=== PATIENT | female | born 2000 | race Caucasian/White ===

== ENCOUNTER 2023-09-25 15:01 | Emergency (ER) | payer SELFPAY ==
[2023-09-25 15:35] VITALS: BP 148/78; PULSE 79; RESP 22; TEMP 36.7; O2SAT 100; BMI 43.2
--- NOTE | 2023-09-25 16:10 | ED_ITS ---
Discharge Plan Disposition Patient Disposition: Home, Self-Care Condition: Good Prescriptions Prescriptions: New ondansetron 4 mg tablet,disintegrating 4 mg PO Q8H PRN (Reason: nausea and vomiting) Qty: 10 0RF Referrals Follow up/Referrals: Provider,Referral, MD [Primary Care Provider] - See instructions Activity Restrictions/Add. Instructions Additional Instructions/Restrictions: Drink extra fluids with and between meals. If you have difficulty drinking, try very small amounts of water or suck on ice chips. ? Avoid fruit juices, as these do not replace minerals and can actually increase diarrhea. ? Children and adults can use sports drinks to replenish electrolytes. Younger children and infants should use products formulated for children, like oral rehydration solutions. ? Eat food in small amounts and let your stomach recover. ? Get lots of rest. You may feel tired or weak. ? No greasy or fried foods for the next 24-48 hours BRAT diet Bananas Rice Apples and Yantis ? Make sure to drink plenty of liquids ? Return if needed ? Straight to ER if any life threatening symptoms ? Zofran as prescribed ? Follow up with family doctor in the next 48-72 hours if no improvement or any worsening of symptoms Clinical Impressions Clinical Impression: Nausea and vomiting Qualifiers: Vomiting type: unspecified Qualified Code(s): R11.2 - Nausea with vomiting, unspecified Stand Alone Forms Stand Alone Forms: Work/School Release Instructions Patient Instructions: Nausea and Vomiting-Adult, Ondansetron Discharge ED Provider: Mia Jimenez [facility] General Stated complaint: stomach pain, vomitting Mode of Arrival: Ambulatory Source of Information: Patient Limitations: No Limitations Time Seen by Provider: 09/25/23 16:11 Description of Symptoms (Recalled from Triage Doc. by RN): PATIENT C/O VOMITING AND STOMACH CRAMPS THAT STARTED THIS MORNING HEENT Symptoms (Recalled from RN notes): No Resp Symptoms (Recalled from RN notes): No Skin Symptoms (Recalled from RN notes): No MS Symptoms (Recalled from RN notes): No Functional Status (Recalled from RN notes): WNL History of Present Illness Provider Complaint: Patient states that she has been around someone with stomach bug and flu States that this morning she woke up with nausea, vomiting and stomach cramps Thinks she may have a bug or something but wanted to get tested for COVID Related Data Previous Rx's Medication Instructions Recorded ondansetron 4 mg disintegrating 4 mg PO Q8H PRN nausea and 09/25/23 tablet vomiting #10 tabs Allergies Allergy/AdvReac Type Severity Reaction Status Date / Time No Known Allergies Allergy Verified 09/25/23 16:00 Worker's Comp Is this a Worker's Comp case?: No [facility] Disclaimer: The information contained in this section may have been updated after the patient was seen, as this information can be updated by other users. Social History Smoking Status: Unknown if ever smoked alcohol intake: never current occupational status: employed Travel in the last 8 weeks: None ROS Obtained: Yes All systems reviewed & no additional complaints except as documented and Yes Systems reviewed as appropriate & no additional complaints except as documented Constitutional Constitutional: Reports system reviewed and no additional complaints, except as documented, Reports as per HPI, Denies body ache, Denies chills, Denies fever(s) and Denies headache(s) ENT Ears, Nose, Mouth, and Throat: Reports system reviewed and no additional complaints, except as documented, Reports as per HPI and Denies headache(s) Cardiovascular Cardiovascular: Reports system reviewed and no additional complaints, except as documented and Reports as per HPI Respiratory Respiratory: Reports system reviewed and no additional complaints, except as documented and Reports as per HPI Gastrointestinal Gastrointestingal: Reports system reviewed and no additional complaints, except as documented, as per HPI, cramping, nausea and vomiting; Denies abdominal pain or diarrhea Genitourinary Female Genitourinary: Reports system reviewed and no additional complaints, except as documented and Reports as per HPI Neurologic Neurologic: Denies headache(s) Physical Exam General General appearance: alert and in no apparent distress ENT ENT exam: Present mucous membranes moist Respiratory Respiratory exam: Present normal lung sounds bilaterally; Absent respiratory distress or wheezes Cardiovascular Cardiovascular exam: Present regular rate, normal rhythm and normal heart sounds Abdominal Exam Abdominal exam: Present soft and normal bowel sounds; Absent distention or tenderness Neurological Exam Neurological exam: Present alert, oriented X3 and normal gait Medical Decision Making Torrey Inquiry Pt receiving controlled substance: No [place] was queried for this patient: No Vital Signs: 09/25/23 15:35 Temperature 98.1 F Temperature Source Oral Pulse Rate [Left Brachial] 79 Respiratory Rate 22 Blood Pressure [Left Arm] 148/78 H Blood Pressure Mean [Left Arm] 101 Blood Pressure Source [Left Arm] Automatic Cuff Blood Pressure Position [Left Arm] Sitting 02 Sat by Pulse Oximetry 100 Oxygen Delivery Method Room Air Lab Data Lab results reviewed: Yes I reviewed the patient's lab results.
[2023-09-25 16:18] VITALS: BP 148/78; PULSE 79; RESP 22; TEMP 36.7; O2SAT 100
== END 2023-09-25 16:24 | disposition home or self-care (01) ==
PROVIDERS: Emergency Provider Nurse Practitioner
DX: R11.2 Nausea with vomiting, unspecified (principal); R10.9 Unspecified abdominal pain
CPT/HCPCS: 99204; 99212; G0463

== ENCOUNTER 2023-11-07 12:46 | Emergency (ER) | payer SELFPAY ==
[2023-11-07 12:47] VITALS: BP 179/80; PULSE 80; RESP 18; TEMP 36.8; O2SAT 99; BMI 43.2
--- NOTE | 2023-11-07 13:56 | ED_ITS ---
Discharge Plan Disposition Patient Disposition: Home, Self-Care Condition: Good Prescriptions Prescriptions: No Action ondansetron 4 mg tablet,disintegrating 4 mg PO Q8H PRN (Reason: nausea and vomiting) Qty: 10 0RF Referrals Follow up/Referrals: Gabriel Llanes DO [Staff Physician] - See instructions Provider,Referral, [Primary Care Provider] - See instructions Activity Restrictions/Add. Instructions Additional Instructions/Restrictions: Ice your knee for the first 24 hours and you may alternate ice and heat whichever 1 feels best for you. Continue weightbearing as tolerated. Please call in the morning and make an appointment with Dr. Llanes of orthopedics for follow-up. The number has been provided for you. Return to your PCP or the ER if any worsening or new symptoms. Clinical Impressions Clinical Impression: Strain of knee and leg, right Qualifiers: Encounter type: initial encounter Qualified Code(s): S86.911A - Strain of unspecified muscle(s) and tendon(s) at lower leg level, right leg, initial encounter Stand Alone Forms Stand Alone Forms: Work/School Release Instructions Patient Instructions: Sprain, DI for Hamstring Strain, DI for Muscle Strain Discharge ED Provider: Suresh Garcia General Adult HPI <BIANCA Mckenna - Last Filed: 11/07/23 15:07> General Chief complaint: Extremity Injury, Lower Stated complaint: AO tightness and pain from back of thigh to ankle Time Seen by Provider: 11/07/23 13:56 History of Present Illness HPI narrative: Patient slipped on water on the concrete floor landing awkwardly. Patient cannot describe what if actually she may have struck with what body part. However patient complains of pain in her right hamstring right knee that radiates towards her foot. Patient was able to bear weight but it was exquisitely painful. Related Data Previous Rx's Medication Instructions Recorded ondansetron 4 mg disintegrating 4 mg PO Q8H PRN nausea and 09/25/23 tablet vomiting #10 tabs Allergies Allergy/AdvReac Type Severity Reaction Status Date / Time No Known Allergies Allergy Verified 11/07/23 14:05 PFSH <BIANCA Mckenna - Last Filed: 11/07/23 15:07> [facility] Disclaimer: The information contained in this section may have been updated after the patient was seen, as this information can be updated by other users. Social History (Updated 09/25/23 @ 16:17 by Mia Jimenez APRN) Smoking Status: Current every day smoker alcohol intake: never current occupational status: employed Travel in the last 8 weeks: None <BIANCA Mckenna - Last Filed: 11/07/23 15:07> ROS Obtained: Yes Systems reviewed as appropriate & no additional complaints except as documented Physical Exam <BIANCA Mckenna - Last Filed: 11/07/23 15:07> General General appearance: alert and in no apparent distress Head Head exam: atraumatic and normal inspection Eye Eye exam: Present normal appearance, PERRL and EOMI ENT ENT exam: Present normal exam, normal oropharynx and mucous membranes moist Neck Neck exam: Present normal inspection and full ROM Chest Chest inspection: Present normal inspection and symmetric chest wall rise Respiratory Respiratory exam: Present normal lung sounds bilaterally; Absent respiratory distress Cardiovascular Cardiovascular exam: Present regular rate, normal rhythm and normal heart sounds Abdominal Exam Abdominal exam: Present soft and normal bowel sounds; Absent tenderness, guarding or rebound Expanded Lower Extremity Exam Right: Hip/Pelvis exam: Present normal inspection and pelvis stable; Absent swelling, ecchymosis, deformity, dislocation, pain on hip/pelvis palpation or hip pain on leg movement Upper leg exam: Present normal inspection and tenderness; Absent full ROM (Due to pain on extension and flexion), swelling, abrasion, laceration, ecchymosis, deformity, crepitus, dislocation or erythema Knee exam: Present normal inspection, tenderness, pain with valgus and pain with varus; Absent full ROM (Pain on flexion extension and lateral medial stressing), swelling, abrasion, laceration, ecchymosis, deformity, crepitus or dislocation Lower leg exam: Present normal inspection and Achilles tendon intact; Absent tenderness, swelling, abrasion, laceration, ecchymosis, deformity, crepitus, erythema, palpable cord or Homans' sign Ankle exam: Present normal inspection and full ROM; Absent tenderness, swelling, abrasion, laceration, ecchymosis, deformity, crepitus, dislocation, tenderness over talofibular lig or anterior draw sign Foot/toe exam: Present normal inspection and full ROM Neurovascular/Tendon exam: Present normal capillary refill and normal fine/light touch; Absent pulse deficit, motor deficit, sensory deficit, tendon deficit, foot drop or significant pain with passive ROM of distal joint Gait: antalgic Back Exam Back exam: Present normal inspection and full ROM Neurological Exam Neurological exam: Present alert and oriented X3 Psychiatric Psychiatric exam: Present normal affect and normal mood Skin Skin exam: Present warm, dry and normal color Medical Decision Making <BIANCA Mckenna - Last Filed: 11/07/23 15:07> Medical Records Medical records reviewed: Yes I reviewed the patient's medical records. Tor[place] Inquiry Pt receiving controlled substance: No Vital Signs: 11/07/23 12:47 11/07/23 14:55 11/07/23 16:08 Temperature 98.2 F 98.2 F Temperature Source Oral Oral Pulse Rate 74 67 Pulse Rate [Left] 80 Respiratory Rate 18 16 17 Blood Pressure 150/74 H 143/81 H Blood Pressure [Right Arm] 179/80 H Blood Pressure Mean [Right Arm] 113 Blood Pressure Source [Right Arm] Automatic Cuff Blood Pressure Position [Right Arm] Sitting 02 Sat by Pulse Oximetry 99 97 Oxygen Delivery Method Room Air Lab Data Lab results reviewed: Yes I reviewed the patient's lab results. Lab Results 11/07/23 15:06: Urine HCG, Qual Negative Orders (Tests/Meds): ED MEDICATIONS Discontinued Medications Generic Name Dose Route Start Last Admin Trade Name [place] PRN Reason Stop Dose Admin Acetaminophen 1,000 mg 11/07/23 14:29 11/07/23 15:01 Acetaminophen 1,000mg/100ml Vial IV 11/07/23 14:30 Not Given ONCE ONE Acetaminophen 1,000 mg 11/07/23 14:56 11/07/23 14:59 Acetaminophen 500mg Tab PO 11/07/23 14:57 1,000 mg ONCE ONE Administration Ketorolac Tromethamine 15 mg 11/07/23 14:29 11/07/23 15:01 Ketorolac 30mg/Ml Vial IV 11/07/23 14:30 Not Given ONCE ONE Ketorolac Tromethamine 30 mg 11/07/23 14:56 11/07/23 15:00 Ketorolac 30mg/Ml Vial IM 11/07/23 14:57 30 mg ONCE ONE Administration ORDERS Category Date Time Status Knee XR right 3 views [XR knee RT 3V] Stat Exams 11/07/23 14:15 Completed Urine , HCG Qual. Stat Lab 11/07/23 15:06 Completed Medical Decision Narrative: In summary patient is a 23-year-old female who presents to the emergency department for evaluation of fall with right lower extremity and knee pain. Patient is hemodynamically stable upon arrival, afebrile. Physical exam is remarkable for tenderness palpation of the entire length of the hamstrings. There is tenderness to range of motion testing at the knee joint however there is no discernible laxity of the joint or effusion but full range of motion testing is unable to be completed due to patient's discomfort. Patient is neurovascular intact distally. No deformity noted to the entire length of the right lower extremity. Differential diagnosis includes skill skeletal injury versus ligamentous injury versus dislocation. Initial workup will be conducted with radiographic imaging. Initial interventions include Tylenol Toradol. Initial workup reviewed by me and my informal review of her plain film x-rays of her knee shows no acute fracture or other acute process.. Upon repeat evaluation patient had interval reduction in her pain level.. Given this appropriate for discharge with instructions for weightbearing as tolerated. Patient to always make a appointment with orthopedics for close follow-up. Via shared decision making patient verbalized understanding and agreement with plan. Patient advised to take Tylenol and Motrin as needed alternating every 4 hours for her discomfort. <Suresh Garcia MD - Last Filed: 11/08/23 18:58> Vital Signs: 11/07/23 12:47 11/07/23 14:55 11/07/23 16:08 Temperature 98.2 F 98.2 F Temperature Source Oral Oral Pulse Rate 74 67 Pulse Rate [Left] 80 Respiratory Rate 18 16 17 Blood Pressure 150/74 H 143/81 H Blood Pressure [Right Arm] 179/80 H Blood Pressure Mean [Right Arm] 113 Blood Pressure Source [Right Arm] Automatic Cuff Blood Pressure Position [Right Arm] Sitting 02 Sat by Pulse Oximetry 99 97 Oxygen Delivery Method Room Air Lab Data Lab Results 11/07/23 15:06: Urine HCG, Qual Negative Orders (Tests/Meds): ED MEDICATIONS Discontinued Medications Generic Name Dose Route Start Last Admin Trade Name Freq PRN Reason Stop Dose Admin Acetaminophen 1,000 mg 11/07/23 14:29 11/07/23 15:01 Acetaminophen 1,000mg/100ml Vial IV 11/07/23 14:30 Not Given ONCE ONE Acetaminophen 1,000 mg 11/07/23 14:56 11/07/23 14:59 Acetaminophen 500mg Tab PO 11/07/23 14:57 1,000 mg ONCE ONE Administration Ketorolac Tromethamine 15 mg 11/07/23 14:29 11/07/23 15:01 Ketorolac 30mg/Ml Vial IV 11/07/23 14:30 Not Given ONCE ONE Ketorolac Tromethamine 30 mg 11/07/23 14:56 11/07/23 15:00 Ketorolac 30mg/Ml Vial IM 11/07/23 14:57 30 mg ONCE ONE Administration ORDERS Category Date Time Status Knee XR right 3 views [XR knee RT 3V] Stat Exams 11/07/23 14:15 Completed Urine , HCG Qual. Stat Lab 11/07/23 15:06 Completed Medical Decision Narrative: In summary patient is a 23-year-old female who presents to the emergency department for evaluation of fall with right lower extremity and knee pain. Patient is hemodynamically stable upon arrival, afebrile. Physical exam is remarkable for tenderness palpation of the entire length of the hamstrings. There is tenderness to range of motion testing at the knee joint however there is no discernible laxity of the joint or effusion but full range of motion testing is unable to be completed due to patient's discomfort. Patient is neurovascular intact distally. No deformity noted to the entire length of the right lower extremity. Differential diagnosis includes skill skeletal injury versus ligamentous injury versus dislocation. Initial workup will be conducted with radiographic imaging. Initial interventions include Tylenol Toradol. Initial workup reviewed by me and my informal review of her plain film x-rays of her knee shows no acute fracture or other acute process.. Upon repeat evaluation patient had interval reduction in her pain level.. Given this appropriate for discharge with instructions for weightbearing as tolerated. Patient to always make a appointment with orthopedics for close follow-up. Via shared decision making patient verbalized understanding and agreement with plan. Patient advised to take Tylenol and Motrin as needed alternating every 4 hours for her discomfort. I was consulted by the MICHAEL, and we discussed the complexity of the problems being addressed.I approved the treatment and management plan for this patient?s care in the Emergency Department, thus performing a substantive portion of the medical decision making.Signed, Suresh Garcia MD Critical Care <BIANCA Mckenna - Last Filed: 11/07/23 15:07> Critical Care Time Critical Care Time: No
--- NOTE | 2023-11-07 14:15 | XR_ITS ---
FINAL REPORT CLINICAL HISTORY: Fall, right knee pain FINDINGS: AP, lateral and oblique views of the right knee were obtained. There is no prior exam for comparison. There is no acute osseous abnormality of the right knee. The joint space is preserved. There is a lucent lesion with sclerotic margin in the medial proximal tibial metaphysis, favor small nonossifying fibroma. The soft tissues are normal. There is no joint effusion. IMPRESSION: No acute osseous abnormality of the right knee. Reviewed, Interpreted and Dictated by Cinthya Chairez MD Transcribed by Cecille Johnson Authenticated and [facility]
--- NOTE | 2023-11-07 14:25 | PC.NURSE ---
I rounded on the pt and did an EKG. pt is talking with visitors. No new complaints voiced at this time.
--- NOTE | 2023-11-07 14:28 | PC.NURSE ---
PT ARRIVED BACK TO ROOM FROM XRAY
[2023-11-07 14:55] VITALS: BP 150/74; PULSE 74; RESP 16; O2SAT 97
--- NOTE | 2023-11-07 14:55 | PC.NURSE ---
rounded on pt
[2023-11-07] MEDS: ACETAMINOPHEN 500MG TAB 1000 MG PO (14:59)
[2023-11-07] MEDS: KETOROLAC 30MG/ML VIAL 30 MG IM (15:00)
[2023-11-07 15:21] LABS: Urine Pregnancy, HCG Qual. Negative (Negative)
[2023-11-07 16:08] VITALS: BP 143/81; PULSE 67; RESP 17; TEMP 36.8; O2SAT 97
== END 2023-11-07 16:11 | disposition home or self-care (01) ==
PROVIDERS: Emergency Provider Emergency Medicine
DX: S86.911A Strain of unspecified muscle(s) and tendon(s) at lower leg level, right leg, initial encounter (principal); F17.200 Nicotine dependence, unspecified, uncomplicated; W18.40XA Slipping, tripping and stumbling without falling, unspecified, initial encounter
CPT/HCPCS: 73562; 81025; 96372; 99283

== ENCOUNTER 2024-06-07 10:54 | Emergency (ER) | payer SELFPAY ==
[2024-06-07 10:55] VITALS: BP 151/77; PULSE 100; RESP 18; TEMP 36.7; O2SAT 98; BMI 43.2
[2024-06-07] MEDS: SULFA/TRIMETHOPRIM 1 TABLET 1 EACH PO (12:07)
[2024-06-07] MEDS: cephALEXin 500MG CAPSULE 500 MG PO (12:07)
[2024-06-07] MEDS: ONDANSETRON 4MG ODT 4 MG SL (12:08)
[2024-06-07 12:13] VITALS: BP 120/80; PULSE 69; RESP 16; TEMP 36.6
--- NOTE | 2024-06-07 14:44 | ED_ITS ---
Discharge Plan Disposition Patient Disposition: Home, Self-Care Condition: Good Prescriptions Prescriptions: New sulfamethoxazole-trimethoprim [Bactrim DS] 800-160 mg tablet 1 tab PO BID 14 Days Qty: 28 0RF cephalexin 500 mg capsule 500 mg PO TID 10 Days Qty: 30 0RF mupirocin 2 % ointment 1 applic topical BID Qty: 22 0RF Rx Instructions: Apply twice daily until resolved. No Action ondansetron 4 mg tablet,disintegrating 4 mg PO Q8H PRN (Reason: nausea and vomiting) Qty: 10 0RF Referrals Follow up/Referrals: Provider,Referral, MD [Primary Care Provider] - See instructions Activity Restrictions/Add. Instructions Additional Instructions/Restrictions: You were evaluated in the emergency department today and diagnosed with an infection of the skin of your face. Please pick up worker your prescriptions for antibiotics and take the full course as prescribed. Take Tylenol and ibuprofen every 4-6 hours at home as needed for pain. Return to the emergency department right away for new or worsening symptoms. Please follow-up closely with your primary care provider. Clinical Impressions Clinical Impression: Cellulitis of face Stand Alone Forms Stand Alone Forms: Work/School Release Instructions Patient Instructions: DI for Cellulitis -- Adult, DI for Skin Abscess Print Language Print Language: Danish Discharge ED Provider: Deborah Flores General Adult HPI General Chief complaint: Skin/Abscess/Foreign Body Stated complaint: lip swollen Time Seen by Provider: 06/07/24 11:38 Mode of Arrival: Ambulatory Source of Information: Patient Limitations: No Limitations Description of Symptoms (Recalled from ER Triage Doc. by RN): PT WITH PAIN, REDNESS AND SWELLING TO UPPER LIP THAT STARTED ON MONDAY History of Present Illness HPI narrative: This patient is a 24-year-old female who denies significant past medical history presenting to the emergency department for swelling of her right upper lip. She reports that she noticed it yesterday but got worse this morning. She states that she feels like the swelling started to spread up in her cheek. No fevers, chills, or other systemic symptoms. No dental issues. No drooling, trismus, or stridor Related Data Previous Rx's ?Medication ?Instructions ?Recorded ondansetron 4 mg disintegrating 4 mg PO Q8H PRN nausea and 09/25/23 tablet vomiting #10 tabs cephalexin 500 mg capsule 500 mg PO TID 10 days #30 caps 06/07/24 mupirocin 2 % topical ointment 1 applic topical BID #22 grams 06/07/24 sulfamethoxazole 800 1 tab PO BID 14 days #28 tabs 06/07/24 mg-trimethoprim 160 mg tablet (Bactrim DS) Allergies Allergy/AdvReac Type Severity Reaction Status Date / Time No Known Allergies Allergy Verified 11/07/23 14:[address] [facility] Disclaimer: The information contained in this section may have been updated after the patient was seen, as this information can be updated by other users. Social History Smoking Status: Current every day smoker alcohol intake: never current occupational status: employed Travel in the last 8 weeks: None ROS Obtained: Yes All systems reviewed & no additional complaints except as documented Physical Exam General General appearance: alert and in no apparent distress Head Head exam: atraumatic and normocephalic Eye Eye exam: Present normal appearance, PERRL and EOMI ENT ENT exam: Present normal oropharynx, mucous membranes moist, normal external ear exam and other (Crusted lesion to the right upper lip with surrounding erythema, warmth, induration, and swelling. No drooling, trismus, or stridor.) Neck Neck exam: Present normal inspection, full ROM and trachea midline; Absent tenderness Chest Chest inspection: Present normal inspection and symmetric chest wall rise; Absent tenderness Respiratory Respiratory exam: Present normal lung sounds bilaterally; Absent respiratory distress, wheezes, stridor or accessory muscle use Cardiovascular Cardiovascular exam: Present regular rate and normal rhythm Abdominal Exam Abdominal exam: Present soft; Absent distention, tenderness or guarding Extremities Exam Extremities exam: Present normal inspection, full ROM and normal capillary refill; Absent tenderness or edema Back Exam Back exam: Present normal inspection and full ROM; Absent tenderness Neurological Exam Neurological exam: Present alert, oriented X3, CN II-XII intact and normal gait; Absent motor sensory deficit Psychiatric Psychiatric exam: Present normal affect and normal mood Skin Skin exam: Present warm and dry Medical Decision Making Medical Records Medical records reviewed: Yes I reviewed the patient's medical records. Screening: Per USPSTF and CDC recommendations, given the prevalence of disease in our region, it is our hospital?s policy to screen for HIV and viral Hepatitis for all patients aged 18 and over and those with ongoing risk factors. [place] Inquiry Pt receiving controlled substance: No Vital Signs: 06/07/24 10:55 06/07/24 12:13 Temperature 98.1 F 97.9 F Temperature Source Oral Pulse Rate 69 Pulse Rate [Radial] 100 H Respiratory Rate 18 16 Blood Pressure 120/80 Blood Pressure [Left Arm] 151/77 H Blood Pressure Mean [Left Arm] 101 Blood Pressure Source [Left Arm] Automatic Cuff Blood Pressure Position [Left Arm] Sitting 02 Sat by Pulse Oximetry 98 Oxygen Delivery Method Room Air Lab Data Lab results reviewed: Yes I reviewed the patient's lab results. Orders (Tests/Meds): ED MEDICATIONS Discontinued Medications Generic Name Dose Route Start Last Admin Trade Name Freq PRN Reason Stop Dose Admin Cephalexin HCl 500 mg 06/07/24 11:52 06/07/24 12:07 Cephalexin 500mg Capsule PO 06/07/24 11:53 500 mg ONCE ONE Administration Ondansetron HCl 4 mg 06/07/24 11:52 06/07/24 12:08 Ondansetron 4mg Odt SL 06/07/24 11:53 4 mg ONCE ONE Administration Trimethoprim/Sulfamethoxazole 1 each 06/07/24 11:52 06/07/24 12:07 Sulfa/Trimethoprim 1 Tablet PO 06/07/24 11:53 1 each ONCE ONE Administration Medical Decision Narrative: In summary, this patient is a 24-year-old presenting to the Emergency Department for evaluation of swelling of her right side of her upper lip. Differential diagnoses considered include but are not limited to cellulitis, abscess, impetigo. Ruling out the most morbid conditions drove assessment. On exam, the patient is very well-appearing with localized swelling, erythema, and induration but no palpable fluctuance. She has crusted lesion. At this time, concern for cellulitis/impetigo. Patient was given mupirocin ointment as well as oral Keflex and Bactrim to take. 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 Given this, I feel the patient is appropriate for discharge home with prescriptions for Bactrim, Keflex, and mupirocin. She was given instructions for supportive management, instructions for close outpatient follow-up, and very strict return precautions. She was discharged after all questions were answered. Procedures Risk/Benefits of Procedure(s) Were Explained: Yes Critical Care Critical Care Time Critical Care Time: No
== END 2024-06-07 12:15 | disposition home or self-care (01) ==
PROVIDERS: Emergency Provider Emergency Medicine
DX: L03.211 Cellulitis of face (principal)
CPT/HCPCS: 99283; Q0162

== ENCOUNTER 2024-06-07 19:36 | Emergency (ER) | payer SELFPAY ==
[2024-06-07 19:36] VITALS: BP 163/86; PULSE 91; RESP 18; TEMP 36.9; O2SAT 96; BMI 43.2
--- NOTE | 2024-06-07 19:42 | ED_ITS ---
<Statement entered by Sepideh Fitzgerald MD - 06/08/24 00:41> I was consulted by the MICHAEL, and we discussed the complexity of problems being addressed. I approved the treatment and management plan for this patient's care in the emergency department, thus performing a substantive portion of the medical decision making. Sepideh Fitzgerald MD Discharge Plan Disposition Patient Disposition: Home, Self-Care Condition: Good Prescriptions Prescriptions: New clindamycin HCl 300 mg capsule 300 mg PO BID 7 Days Qty: 14 0RF Discontinued sulfamethoxazole-trimethoprim [Bactrim DS] 800-160 mg tablet 1 tab PO BID 14 Days Qty: 28 0RF No Action ondansetron 4 mg tablet,disintegrating 4 mg PO Q8H PRN (Reason: nausea and vomiting) Qty: 10 0RF cephalexin 500 mg capsule 500 mg PO TID 10 Days Qty: 30 0RF mupirocin 2 % ointment 1 applic topical BID Qty: 22 0RF Rx Instructions: Apply twice daily until resolved. Referrals Follow up/Referrals: Provider,ReferralMD [Primary Care Provider] - See instructions Activity Restrictions/Add. Instructions Additional Instructions/Restrictions: Do warm compresses to the area on your face to help with pain. Take ibuprofen and Tylenol together for the pain. Take the new antibiotic, clindamycin. Do not take the Bactrim. Follow back up with your primary care physician on Monday. Clinical Impressions Clinical Impression: Abscess of skin or subcutaneous tissue Instructions Patient Instructions: DI for Skin Abscess Print Language Print Language: Ghanaian Discharge ED Provider: Sepideh Fitzgerald General Adult HPI General Chief complaint: Skin/Abscess/Foreign Body Stated complaint: lip/face abcess Time Seen by Provider: 06/07/24 19:40 History of Present Illness HPI narrative: 24-year-old female presents to the ED today after taking a dose of Bactrim earlier today for a facial abscess and is having angio edema and swelling to her right face. She has no throat swelling, no chest pain, no wheezing and no shortness of breath. She has no chest pain. She was here in the ER earlier today and received a dose of Bactrim Related Data Previous Rx's ?Medication ?Instructions ?Recorded ondansetron 4 mg disintegrating 4 mg PO Q8H PRN nausea and 09/25/23 tablet vomiting #10 tabs cephalexin 500 mg capsule 500 mg PO TID 10 days #30 caps 06/07/24 clindamycin HCl 300 mg capsule 300 mg PO BID 7 days #14 caps 06/07/24 mupirocin 2 % topical ointment 1 applic topical BID #22 grams 06/07/24 Allergies Allergy/AdvReac Type Severity Reaction Status Date / Time No Known Allergies Allergy Verified 11/07/23 14:05 [facility] Disclaimer: The information contained in this section may have been updated after the patient was seen, as this information can be updated by other users. Social History Smoking Status: Current every day smoker alcohol intake: never current occupational status: employed Travel in the last 8 weeks: None ROS Obtained: Yes All systems reviewed & no additional complaints except as documented Constitutional Constitutional: Reports system reviewed and no additional complaints, except as documented and Reports as per HPI ENT Ears, Nose, Mouth, and Throat: Reports as per HPI Physical Exam General General appearance: alert and in no apparent distress Head Head exam: atraumatic and normocephalic Eye Eye exam: Present normal appearance, PERRL and EOMI ENT ENT exam: Present mucous membranes moist Expanded ENT Exam Mouth exam: Present normal external inspection, lip swelling and tongue normal Comment: Right lip and above with erythema and abscess present right side of face with swelling Neck Neck exam: Present normal inspection, full ROM and trachea midline Respiratory Respiratory exam: Present normal lung sounds bilaterally Cardiovascular Cardiovascular exam: Present regular rate, normal rhythm, normal heart sounds, +S1 and +S2 Abdominal Exam Abdominal exam: Present soft and normal bowel sounds Extremities Exam Extremities exam: Present normal inspection, full ROM and normal capillary refill Neurological Exam Neurological exam: Present alert, oriented X3 and normal gait Skin Skin exam: Present warm, dry and erythema (To right face and above right lip with abscess) Medical Decision Making Medical Records Screening: Per USPSTF and CDC recommendations, given the prevalence of disease in our region, it is our hospital?s policy to screen for HIV and viral Hepatitis for all patients aged 18 and over and those with ongoing risk factors. [place] Inquiry Pt receiving controlled substance: No [place] was queried for this patient: No Vital Signs: 06/07/24 19:36 Temperature 98.5 F Temperature Source Oral Pulse Rate [Right] 91 H Respiratory Rate 18 Blood Pressure [Right Arm] 163/86 H Blood Pressure Mean [Right Arm] 111 02 Sat by Pulse Oximetry 96 Oxygen Delivery Method Room Air Orders (Tests/Meds): ED MEDICATIONS Generic Name Dose Route Start Last Admin Trade Name Shermanq PRN Reason Stop Dose Admin Sodium Chloride 8 ml 06/07/24 19:41 06/07/24 19:52 Sodium Chloride 0.9% 10ml Vial IV 07/07/24 19:40 8 ml NEEDED PRN Administration dilute pepcid Discontinued Medications Generic Name Dose Route Start Last Admin Trade Name Shermanq PRN Reason Stop Dose Admin Diphenhydramine HCl 25 mg 06/07/24 19:42 06/07/24 19:52 Diphenhydramine 50mg/Ml Vial IV 06/07/24 19:43 25 mg ONCE ONE Administration Epinephrine HCl 0.3 mg 06/07/24 19:41 06/07/24 19:51 Epinephrine 1 Mg/Ml Ampul IM 06/07/24 19:42 0.3 mg ONCE ONE Administration Famotidine 20 mg 06/07/24 19:41 06/07/24 19:52 Famotidine 20mg/2ml Vial IV 06/07/24 19:42 20 mg ONCE ONE Administration Methylprednisolone Sodium Succinate 125 mg 06/07/24 19:41 06/07/24 19:51 Methylprednisolone Sod Succ 125mg Vial IV 06/07/24 19:42 125 mg ONCE ONE Administration Medical Decision Narrative: Insert review patient is a 24-year-old female presenting to the emergency department for evaluation of angioedema of the right side of her lip after taking Bactrim. Patient is hemodynamically stable and nontoxic-appearing upon arrival, afebrile. Differential diagnosis includes allergic reaction to antibiotic. Patient will be given famotidine IV, Benadryl IV, Solu-Medrol IV and epi IM for allergic reaction and angioedema after taking Bactrim. Patient is much better after being given the medications here in the ED. We will switch the Bactrim out and give her clindamycin for the infection. Discussed this with the patient and she has not been allergic to any other medicines in the past. She has an appointment with her PCP on Monday. Critical Care Critical Care Time Critical Care Time: No
[2024-06-07] MEDS: METHYLPREDNISOLONE SOD SUCC 125MG VIAL 125 MG IV (19:51)
[2024-06-07] MEDS: EPINEPHrine 1 MG/ML AMPUL 0.3 MG IM (19:51)
[2024-06-07] MEDS: diphenhydrAMINE 50MG/ML VIAL 25 MG IV (19:52)
[2024-06-07] MEDS: FAMOTIDINE 20MG/2ML VIAL 20 MG IV (19:52)
[2024-06-07] MEDS: SODIUM CHLORIDE 0.9% 10ML VIAL 8 ML IV (19:52)
--- NOTE | 2024-06-07 19:55 | ECG_ITS ---
APPROVED REPORT Exam: Resting ECG HR:85 bpm ECG Measurements Heart Rate 85 AXES VA 128 P 26 QRSd 104 QRS 77 QT 364 T 16 QTc 406 Conclusion SINUS RHYTHM NONSPECIFIC ST & T-WAVE ABNORMALITY BORDERLINE ECG UNCONFIRMED REPORT Electronically signed by : Sepideh Fitzgerald, 06/07/2024 20:12:28
[2024-06-07 20:27] VITALS: BP 163/86; PULSE 91; RESP 18; TEMP 36.9; O2SAT 96
== END 2024-06-07 20:32 | disposition home or self-care (01) ==
PROVIDERS: Emergency Provider Student in an Organized Health Care Education/Training Program
DX: T78.3XXA Angioneurotic edema, initial encounter (principal); R22.0 Localized swelling, mass and lump, head; L02.01 Cutaneous abscess of face
CPT/HCPCS: 93005; 96372; 96374; 96375; 99284; J1200; J2919; S0028

== ENCOUNTER 2024-06-09 07:00 | Emergency (ER) | payer SELFPAY ==
[2024-06-09 07:01] VITALS: BP 140/71; PULSE 83; RESP 18; TEMP 36.8; O2SAT 100; BMI 43.2
--- NOTE | 2024-06-09 07:07 | [facility].EDGENADL ---
Discharge Plan Disposition Patient Disposition: Home, Self-Care Condition: Good Prescriptions Prescriptions: New naproxen 500 mg tablet 500 mg PO BID Qty: 10 0RF lidocaine 5 % cream 1 applic topical BID PRN (Reason: pain) Qty: 14.17 0RF acetaminophen [Tylenol Extra Strength] 500 mg tablet 1,000 mg PO Q6H PRN (Reason: pain) Qty: 20 0RF clindamycin HCl 300 mg capsule 300 mg PO Q6H 7 Days Qty: 28 0RF No Action clindamycin HCl 300 mg capsule 300 mg PO BID 7 Days Qty: 14 0RF ondansetron 4 mg tablet,disintegrating 4 mg PO Q8H PRN (Reason: nausea and vomiting) Qty: 10 0RF cephalexin 500 mg capsule 500 mg PO TID 10 Days Qty: 30 0RF mupirocin 2 % ointment 1 applic topical BID Qty: 22 0RF Rx Instructions: Apply twice daily until resolved. Activity Restrictions/Add. Instructions Additional Instructions/Restrictions: Return to the ER if you develop trouble swallowing. Antibiotics will take about 3-5 days to start to see improvement. Continue to take keflex and mupirocin as prescribed, but start taking the new prescription of clindamycin 4 times a day versus 2 times a day. Clinical Impressions Clinical Impression: Cellulitis of face Instructions Patient Instructions: Cellulitis Print Language Print Language: Kiswahili Discharge ED Provider: Patsy Gore General Adult HPI General Chief complaint: Skin/Abscess/Foreign Body Stated complaint: infection in lip Time Seen by Provider: 06/09/24 07:06 History of Present Illness HPI narrative: Patient is a 24-year-old with no significant past medical history presents to the emergency department with lip infection. A few days ago patient was picking at a pimple noted increased swelling of the upper lip. She started taking antibiotics after being seen in the emergency department on 06/07. Patient reports compliance with taking the antibiotics as prescribed. Patient is most concerned with the pain and lack of improvement. Patient denies trouble swallowing but notes numbness in the little bit on the face and feeling pain radiate to her right ear. Currently on menstrual period. No dental pain. No visual changes Related Data Previous Rx's ?Medication ?Instructions ?Recorded ondansetron 4 mg disintegrating 4 mg PO Q8H PRN nausea and 09/25/23 tablet vomiting #10 tabs cephalexin 500 mg capsule 500 mg PO TID 10 days #30 caps 06/07/24 clindamycin HCl 300 mg capsule 300 mg PO BID 7 days #14 caps 06/07/24 mupirocin 2 % topical ointment 1 applic topical BID #22 grams 06/07/24 acetaminophen 500 mg tablet 1,000 mg (2 x 500 mg) PO Q6H PRN 06/09/24 (Tylenol Extra Strength) pain #20 tabs clindamycin HCl 300 mg capsule 300 mg PO Q6H 7 days #28 caps 06/09/24 lidocaine 5 % topical cream 1 applic topical BID PRN pain 06/09/24 #14.17 grams naproxen 500 mg tablet 500 mg PO BID #10 tabs 06/09/24 Allergies Allergy/AdvReac Type Severity Reaction Status Date / Time No Known Allergies Allergy Verified 11/07/23 14:05 [facility] Disclaimer: The information contained in this section may have been updated after the patient was seen, as this information can be updated by other users. Social History Smoking Status: Current every day smoker alcohol intake: never current occupational status: employed Travel in the last 8 weeks: None ROS Obtained: Yes All systems reviewed & no additional complaints except as documented Physical Exam General General appearance: alert and in no apparent distress Head Head exam: other (Erythema and swelling of the right upper lip with purulent drainage, no cervical LAD, no posterior oropharynx swelling or erythema ) Eye Eye exam: Present PERRL and EOMI ENT ENT exam: Present normal oropharynx and mucous membranes moist Neck Neck exam: Present normal inspection and trachea midline; Absent tenderness or lymphadenopathy Respiratory Respiratory exam: Absent respiratory distress or accessory muscle use Cardiovascular Cardiovascular exam: Present regular rate and normal rhythm Abdominal Exam Abdominal exam: Absent distention or tenderness Neurological Exam Neurological exam: Present alert and oriented X3 Lymphatic Lymphatic Findings: no adenopathy Medical Decision Making Medical Records Screening: Per USPSTF and CDC recommendations, given the prevalence of disease in our region, it is our hospital?s policy to screen for HIV and viral Hepatitis for all patients aged 18 and over and those with ongoing risk factors. [place] Inquiry Pt receiving controlled substance: No Vital Signs: 06/09/24 07:01 06/09/24 07:26 Temperature 98.2 F 98.2 F Temperature Source Oral Pulse Rate 83 Pulse Rate [Right] 83 Respiratory Rate 18 18 Blood Pressure 140/71 Blood Pressure [Right Arm] 140/71 Blood Pressure Mean [Right Arm] 94 02 Sat by Pulse Oximetry 100 Orders (Tests/Meds): ORDERS Category Date Time Status POCUS Point of Care (ER Only) Stat Exams 06/09/24 07:10 Ordered HIV (1&2) Antibody Rapid Stat Lab 06/09/24 07:09 Ordered Hep C Ab with Reflex to RNA Stat Lab 06/09/24 07:09 Ordered Medical Decision Narrative: In summary, this 24-year-old presents to the emergency department today with lip swelling. On initial evaluation patient is hemodynamically stable saturating appropriately on room air afebrile no acute distress. Differential diagnosis includes but is not limited to cellulitis, abscess, odontogenic infection. Based on these concerns, I performed [id number] ultrasound unremarkable for abscess. Wound already draining appropriately based on physical exam. I personally reviewed 06/07 evaluation and notable for clindamycin 300 mg BID, keflex 500 mg tid and mupirocin cream. Due to purulence of infection most likely associated with MRSA species. Pt agreeable with increasing frequency of clindamycin form BID to QID and new prescription sent to [facility] pharmacy. Patient also prescribed with multimodal pain control naproxen Tylenol and topical lidocaine for pain with strict return precautions including trouble swallowing which would be concerning for a deeper neck space infection. Of note, social determinants of health include limited access to primary care Procedures Limited Ultrasound Indication:: erythema and swelling Interpretation:: Indication: soft tissue redness and swelling Location: upper lip Findings: cellulitis without abscess Impression: cellulitis without abscess Images were saved to the permanent archive. The study was technically adequate. Soft tissue CPT codes Neck: 63644-39 Upper extremity: 97922-44 Axilla: 74032-17 Chest wall: 16175-75 Breast: 79981-15 (complete), 60939-58-[RT/LT] (limited) Upper back: 25345-91 Abdominal wall: 89953-73 Pelvic wall: 08241-66 Lower extremity: 51501-27 Other soft tissue: 85599-36 This study was performed by me, and I personally interpreted all images/videos. Based on my clinical judgment, these images were adequate and did not necessitate further imaging. Critical Care Critical Care Time Critical Care Time: No
[2024-06-09 07:26] VITALS: BP 140/71; PULSE 83; RESP 18; TEMP 36.8; O2SAT 100
== END 2024-06-09 07:30 | disposition home or self-care (01) ==
LOC: ER 07:32
PROVIDERS: Emergency Provider Student in an Organized Health Care Education/Training Program
DX: L03.211 Cellulitis of face (principal)
CPT/HCPCS: 99284